=== PATIENT | female | born 1990 | race Caucasian/White ===

== ENCOUNTER 2020-09-14 13:16 | Emergency (ER) | payer OTHER ==
[~2020-09-14] VITALS: Ht 157.5 cm; Wt 63.8 kg
[2020-09-14 13:21] VITALS: BP 130/87
[2020-09-14] MEDS ORDERED: ACETAMINOPHEN 325 MG TABLET PO ONE (15:15)
== END 2020-09-14 15:42 | disposition home or self-care (01) ==
LOC: EMS 13:23
DX: R05 Cough (principal); R51.9 Headache, unspecified; Z20.822 Contact with and (suspected) exposure to COVID-19
CPT/HCPCS: 71045; 99284; U0003